=== PATIENT | female | born 1965 | race American Indian/Alaskan Native ===

== ENCOUNTER 2017-05-19 08:36 | Inpatient (IN) | payer MEDICARE ==
[2017-05-19 09:17] LABS: Basophils % (Auto) 0.4 % (0.0-1.8); Eosinophils % (Auto) 1.2 % (0.0-4.3); Hematocrit 42.4 % (30.3-42.9); Hemoglobin 14.2 gm/dl (10.1-14.3); Mean Corpuscular HGB Conc 33 % (30-34); Mean Corpuscular Hemoglobin 30 pg (28-32); Mean Corpuscular Volume 89 fl (79-97); Platelet Count 302 K/mm3 (140-440); Red Blood Count 4.75 M/mm3 (3.65-5.03); Red Cell Distribution Width 14.9 % (13.2-15.2); White Blood Count 6.1 K/mm3 (4.5-11.0)
[2017-05-19 09:32] LABS: Anion Gap 17 mmol/L; Blood Urea Nitrogen 11 mg/dL (7-17); Carbon Dioxide 29 mmol/L (22-30); Chloride 99.1 mmol/L (98-107); Glucose 96 mg/dL (65-100); Potassium 3.9 mmol/L (3.6-5.0); Sodium 141 mmol/L (137-145)
--- NOTE | 2017-05-19 13:09 | Emergency Department Report ---
ED Chest Pain HPI - General Chief Complaint: Chest Pain Stated Complaint: CHEST PAIN Time Seen by Provider: 05/19/17 12:59 Source: patient Mode of arrival: Ambulatory Limitations: No Limitations - History of Present Illness MD Complaint: chest pain -: Gradual, Last night Onset: during rest Pain Location: substernal, left chest Pain Radiation: none Severity scale (0 -10): 7 Quality: heaviness, pressure Improves With: nothing Worsens With: exertion Treatments Prior to Arrival: none - Related Data Allergies Allergy/AdvReac Type Severity Reaction Status Date / Time No Known Allergies Allergy Unverified 05/19/17 08:46 Heart Score - HEART Score History: Moderately suspicious EKG: Non-specific Age: 45-65 Risk factors: > 3 risk factors or hx of atherosclerotic disease Troponin: < normal limit HEART Score: 5 - Critical Actions Critical Actions: 4-6 pts:12-16.6% risk of adverse cardiac event. Should be admitted ED Review of Systems ROS: Stated complaint: CHEST PAIN Other details as noted in HPI Comment: All other systems reviewed and negative Constitutional: denies: chills, fever Cardiovascular: chest pain, dyspnea on exertion, syncope. denies: palpitations , orthopnea, paroxysmal nocturnal dyspnea Gastrointestinal: denies: abdominal pain, nausea, vomiting Genitourinary: denies: frequency Neurological: denies: headache ED Past Medical Hx - Past Medical History Hx Hypertension: Yes Hx Heart Attack/AMI: No Hx Congestive Heart Failure: No Hx Asthma: Yes - Surgical History Past Surgical History?: No - Social History Smoking Status: Never Smoker Substance Use Type: None ED Physical Exam - General Limitations: No Limitations General appearance: alert, in no apparent distress - Head Head exam: Present: atraumatic - Neck Neck exam: Present: normal inspection - Respiratory Respiratory exam: Present: normal lung sounds bilaterally. Absent: wheezes, rales, rhonchi - Cardiovascular Cardiovascular Exam: Present: regular rate, normal heart sounds - GI/Abdominal GI/Abdominal exam: Present: soft. Absent: tenderness, guarding, rebound - Neurological Exam Neurological exam: Present: alert, oriented X3, CN II-XII intact. Absent: motor sensory deficit - Psychiatric Psychiatric exam: Present: normal affect ED Course Vital Signs 05/19/17 05/19/17 08:46 13:17 Temperature 98.7 F 98 F Pulse Rate 69 53 L Respiratory 18 16 Rate Blood Pressure 117/68 Blood Pressure 121/86 [Right] O2 Sat by Pulse 99 99 Oximetry ED Medical Decision Making - Lab Data Result diagrams: 05/19/17 08:57 05/19/17 08:57 - Medical Decision Making DISCUSS WITH DR TALBOT TO ADMIT FOR CHEST PAIN R/O [place]. DR TALBOT ACCEPTED THE PATIENT TO BE ADMITTED FOR TELE OBSERVATION. Critical care attestation.: If time is entered above; I have spent that time in minutes in the direct care of this critically ill patient, excluding procedure time. ED Disposition Clinical Impression: Chest pain Disposition: DC-09 OP ADMIT IP TO THIS HOSP Is pt being admited?: Yes Does the pt Need Aspirin: Yes Condition: Stable Instructions: Chest Pain (ED) Referrals: PRIMARY CARE, [Primary Care Provider] - 3-5 Days
--- NOTE | 2017-05-19 13:23 | XRay Report ---
Single view chest: History: Fever and cough. Findings: Normal cardiomediastinal silhouette. Trachea is midline. No consolidation, pneumothorax or pleural effusion. Impression: No acute cardiopulmonary findings.
[2017-05-19] MEDS ORDERED: BABY ASPIRIN PO ONE (13:40)
[2017-05-19] MEDS ORDERED: NITROSTAT SL ONE (13:40)
[2017-05-19] MEDS ORDERED: NACL 0.9% 1000 ML 1,000 ML ONE (14:06)
--- NOTE | 2017-05-19 16:49 | History and Physical Report ---
History of Present Illness Date of examination: 05/19/17 Date of admission: 05/19/17 13:45 Chief complaint: Chest pain since last night History of present illness: MENTASTA:51 y/o female with pmh of HTN Asthma comes in for L sided chest pain since last night Pain is retro sternal non radiating.No Sob or diaphoresis.No palpitations. - HEART Score History: Moderately suspicious EKG: Non-specific Age: 45-65 Risk factors: > 3 risk factors or hx of atherosclerotic disease Troponin: < normal limit HEART Score: - Past Medical History Hx Hypertension: Yes Hx Heart Attack/AMI: No Hx Congestive Heart Failure: No Hx Asthma: Yes - Surgical History Past Surgical History?: No - Social History Smoking Status: Never Smoker Substance Use Type: None Fam Hx HTN Medications and Allergies Allergies Allergy/AdvReac Type Severity Reaction Status Date / Time No Known Allergies Allergy Unverified 05/19/17 08:46 Review of Systems All systems: negative Constitutional: no weight loss, no weight gain, no fever, no chills Ears, nose, mouth and throat: no hoarseness, no sore throat Breasts: deferred Cardiovascular: chest pain, no orthopnea, no palpitations, no rapid/irregular heart beat, no edema, no syncope, no lightheadedness, no shortness of breath Respiratory: congestion, wheezing, no cough, no cough with sputum, no excessive sputum, no hemoptysis, no shortness of breath, no dyspnea on exertion Gastrointestinal: no abdominal pain, no nausea, no vomiting, no diarrhea, no constipation, no change in bowel habits, no hematemesis, no coffee ground emesis Genitourinary Female: no pelvic pain, no flank pain, no menorrhagia, no dysuria , no urinary frequency, no urgency, no stress incontinence Menstruation: ammenorrhea Musculoskeletal: no neck stiffness, no neck pain, no shooting arm pain, no arm numbness/tingling, no low back pain, no shooting leg pain, no leg numbness/ tingling, no redness of joints Integumentary: no rash, no pruritis, no redness, no sores, no wounds, no jaundice, no boils, no blisters Neurological: no weakness, no parathesias, no numbness, no tingling, no seizures , no syncope Psychiatric: no anxiety, no memory loss, no change in sleep habits, no sleep disturbances, no insomnia, no hypersomnia, no change in appetite, no change in libido Endocrine: no cold intolerance, no heat intolerance, no polyphagia, no excessive thirst, no polydipsia, no polyuria, no nocturia, no excessive sweating , no flushing, no weight change Hematologic/Lymphatic: no easy bruising, no easy bleeding Allergic/Immunologic: wheezing, no urticaria, no allergic rhinitis Exam - Physical Exam Narrative exam: Lying comfortaby - Constitutional Vitals: Temp Pulse Resp BP Pulse Ox 98 F 54 L 16 143/81 96 05/19/17 13:17 05/19/17 15:10 05/19/17 15:10 05/19/17 15:10 05/19/17 15:10 General appearance: Present: no acute distress, well-nourished - EENT Eyes: Present: PERRL ENT: hearing intact, clear oral mucosa - Neck Neck: Present: supple, normal ROM - Respiratory Respiratory effort: normal Respiratory: bilateral: CTA - Cardiovascular Heart rate: 76 Rhythm: regular Heart Sounds: Present: S1 & S2. Absent: rub, click - Extremities Extremities: no ischemia, pulses intact, pulses symmetrical, No edema Peripheral Pulses: within normal limits - Abdominal General gastrointestinal: Present: soft, non-tender, non-distended, normal bowel sounds Female genitourinary: Present: normal - Rectal Rectal Exam: deferred - Integumentary Integumentary: Present: clear, warm, dry - Musculoskeletal Musculoskeletal: gait normal, strength equal bilaterally - Psychiatric Psychiatric: appropriate mood/affect, intact judgment & insight - Neurologic Neurologic: CNII-XII intact, moves all extremities - Allied Health Allied health notes reviewed: nursing, case management Results - Labs CBC & Chem 7: 05/20/17 04:16 05/20/17 04:16 Labs: Laboratory Last Values WBC 6.1 K/mm3 (4.5-11.0) 05/19/17 08:57 RBC 4.75 M/mm3 (3.65-5.03) 05/19/17 08:57 Hgb 14.2 gm/dl (10.1-14.3) 05/19/17 08:57 Hct 42.4 % (30.3-42.9) 05/19/17 08:57 MCV 89 fl (79-97) 05/19/17 08:57 MCH 30 pg (28-32) 05/19/17 08:57 MCHC 33 % (30-34) 05/19/17 08:57 RDW 14.9 % (13.2-15.2) 05/19/17 08:57 Plt Count 302 K/mm3 (140-440) 05/19/17 08:57 Lymph % (Auto) 33.6 % (13.4-35.0) 05/19/17 08:57 [place] % (Auto) 5.2 % (0.0-7.3) 05/19/17 08:57 Eos % (Auto) 1.2 % (0.0-4.3) 05/19/17 08:57 Baso % (Auto) 0.4 % (0.0-1.8) 05/19/17 08:57 Lymph # 2.1 K/mm3 (1.2-5.4) 05/19/17 08:57 [place] # 0.3 K/mm3 (0.0-0.8) 05/19/17 08:57 Eos # 0.1 K/mm3 (0.0-0.4) 05/19/17 08:57 Baso # 0.0 K/mm3 (0.0-0.1) 05/19/17 08:57 Seg Neutrophils % 59.6 % (40.0-70.0) 05/19/17 08:57 Seg Neutrophils # 3.7 K/mm3 (1.8-7.7) 05/19/17 08:57 Sodium 141 mmol/L (137-145) 05/19/17 08:57 Potassium 3.9 mmol/L (3.6-5.0) 05/19/17 08:57 Chloride 99.1 mmol/L (98-107) 05/19/17 08:57 Carbon Dioxide 29 mmol/L (22-30) 05/19/17 08:57 Anion Gap 17 mmol/L 05/19/17 08:57 BUN 11 mg/dL (7-17) 05/19/17 08:57 Creatinine 1.0 mg/dL (0.7-1.2) 05/19/17 08:57 Estimated GFR > 60 ml/min 05/19/17 08:57 BUN/Creatinine Ratio 11.00 % 05/19/17 08:57 Glucose 96 mg/dL (65-100) 05/19/17 08:57 Calcium 9.0 mg/dL (8.4-10.2) 05/19/17 08:57 Troponin T < 0.010 ng/mL (0.00-0.029) 05/19/17 15:09 NT-Pro-B Natriuret Pep 56.89 pg/mL (0-900) 05/19/17 11:52 Lipase 47 units/L (13-60) 05/19/17 11:52 Short CBC 05/19/17 05/20/17 Range/Units 08:57 04:16 WBC 6.1 6.2 (4.5-11.0) K/mm3 Hgb 14.2 13.6 (10.1-14.3) gm/dl Hct 42.4 40.2 (30.3-42.9) % Plt Count 302 264 (140-440) K/mm3 BMP 05/19/17 05/20/17 08:57 04:16 Sodium 141 143 Potassium 3.9 3.6 Chloride 99.1 99.7 Carbon Dioxide 29 31 H BUN 11 15 Creatinine 1.0 1.0 Glucose 96 99 Calcium 9.0 8.6 Cardiac Enzymes 05/19/17 05/19/17 05/19/17 Range/Units 08:57 11:52 15:09 Total Creatine Kinase (30-135) units/L CK-MB (CK-2) (0.0-4.0) ng/mL Troponin T < 0.010 < 0.010 < 0.010 (0.00-0.029) ng/mL 05/19/17 05/20/17 05/20/17 Range/Units 22:29 04:16 04:16 Total Creatine Kinase 106 120 (30-135) units/L CK-MB (CK-2) 1.4 1.5 (0.0-4.0) ng/mL Troponin T < 0.010 (0.00-0.029) ng/mL Liver Function 05/20/17 Range/Units 04:16 Total Bilirubin 0.20 (0.1-1.2) mg/dL AST 12 (5-40) units/L ALT 13 (7-56) units/L Alkaline Phosphatase 90 (35-129) units/L Albumin 3.7 L (3.9-5) g/dL - Imaging and Cardiology EKG: report reviewed Chest x-ray: report reviewed (NAF) Assessment and Plan Advance Directives: Yes (Full code) VTE prophylaxis?: Chemical Plan of care discussed with patient/family: Yes - Patient Problems (1) Acute coronary syndrome Current Visit: Yes Status: Acute Plan to address problem: Serial cardiac enzymes.Lexiscan scheduled for AM of 05/20/17. Differential diagnosis of Costochondritis and reflux esophagitis considered.Costochondritis ruled out.No Chest wall tenderness. (2) Asthma Current Visit: Yes Status: Acute Qualifiers: Asthma severity: A Asthma complication type: A (3) Asthma Current Visit: Yes Status: Inactive Qualifiers: Asthma severity: A Asthma complication type: uncomplicated Plan to address problem: Albuterol MDI prn 2 puffes qid and if necessary Neb treatments. (4) HTN (hypertension) Current Visit: Yes Status: Chronic Qualifiers: Hypertension type: essential hypertension Qualified Code(s): I10 - Essential (primary) hypertension Plan to address problem: Borderline.Will add coreg or Losartan if BP readings are high (5) DVT prophylaxis Current Visit: Yes Status: Acute Plan to address problem: On Lovenox 40 mg sq qd
[2017-05-19] MEDS ORDERED: MILK OF MAGNESIA PO PRN (22:17)
[2017-05-19] MEDS ORDERED: ZOFRAN IV PRN (22:17)
[2017-05-19] MEDS ORDERED: DILAUDID IV PRN (22:17)
[2017-05-19] MEDS ORDERED: DULCOLAX PR PRN (22:17)
[2017-05-19] MEDS ORDERED: TYLENOL PO PRN (22:17)
[2017-05-19] MEDS ORDERED: AMBIEN PO PRN (22:17)
--- NOTE | 2017-05-19 22:17 | History and Physical Report ---
History of Present Illness Date of examination: 05/19/17 Date of admission: 05/19/17 13:45 Medications and Allergies Allergies Allergy/AdvReac Type Severity Reaction Status Date / Time No Known Allergies Allergy Unverified 05/19/17 08:46 Exam - Constitutional Vitals: Temp Pulse Resp BP Pulse Ox 98 F 61 16 135/93 100 05/19/17 18:18 05/19/17 18:18 05/19/17 19:55 05/19/17 18:18 05/19/17 18:18 Results - Labs CBC & Chem 7: 05/19/17 08:57 05/19/17 08:57 Labs: Laboratory Last Values WBC 6.1 K/mm3 (4.5-11.0) 05/19/17 08:57 RBC 4.75 M/mm3 (3.65-5.03) 05/19/17 08:57 Hgb 14.2 gm/dl (10.1-14.3) 05/19/17 08:57 Hct 42.4 % (30.3-42.9) 05/19/17 08:57 MCV 89 fl (79-97) 05/19/17 08:57 MCH 30 pg (28-32) 05/19/17 08:57 MCHC 33 % (30-34) 05/19/17 08:57 RDW 14.9 % (13.2-15.2) 05/19/17 08:57 Plt Count 302 K/mm3 (140-440) 05/19/17 08:57 Lymph % (Auto) 33.6 % (13.4-35.0) 05/19/17 08:57 [place] % (Auto) 5.2 % (0.0-7.3) 05/19/17 08:57 Eos % (Auto) 1.2 % (0.0-4.3) 05/19/17 08:57 Baso % (Auto) 0.4 % (0.0-1.8) 05/19/17 08:57 Lymph # 2.1 K/mm3 (1.2-5.4) 05/19/17 08:57 [place] # 0.3 K/mm3 (0.0-0.8) 05/19/17 08:57 Eos # 0.1 K/mm3 (0.0-0.4) 05/19/17 08:57 Baso # 0.0 K/mm3 (0.0-0.1) 05/19/17 08:57 Seg Neutrophils % 59.6 % (40.0-70.0) 05/19/17 08:57 Seg Neutrophils # 3.7 K/mm3 (1.8-7.7) 05/19/17 08:57 Sodium 141 mmol/L (137-145) 05/19/17 08:57 Potassium 3.9 mmol/L (3.6-5.0) 05/19/17 08:57 Chloride 99.1 mmol/L (98-107) 05/19/17 08:57 Carbon Dioxide 29 mmol/L (22-30) 05/19/17 08:57 Anion Gap 17 mmol/L 05/19/17 08:57 BUN 11 mg/dL (7-17) 05/19/17 08:57 Creatinine 1.0 mg/dL (0.7-1.2) 05/19/17 08:57 Estimated GFR > 60 ml/min 05/19/17 08:57 BUN/Creatinine Ratio 11.00 % 05/19/17 08:57 Glucose 96 mg/dL (65-100) 05/19/17 08:57 Calcium 9.0 mg/dL (8.4-10.2) 05/19/17 08:57 Troponin T < 0.010 ng/mL (0.00-0.029) 05/19/17 15:09 NT-Pro-B Natriuret Pep 56.89 pg/mL (0-900) 05/19/17 11:52 Lipase 47 units/L (13-60) 05/19/17 11:52
[2017-05-19] MEDS ORDERED: DUONEB *Not for PRN Use IH SCH (22:30)
[2017-05-19 23:29] LABS: Creatine Kinase MB 1.4 ng/mL (0.0-4.0)
[2017-05-20] MEDS: PERCOCET 5/325 PO PRN ×2 (00:29→09:53)
--- NOTE | 2017-05-20 01:37 | Admit Criteria Form ---
Admission Criteria Documentation: CARDIOLOGY GRG Clinical Indications for Admission to Inpatient Care ( Place 'X' for any and all applicable criteria): Hospital admission is needed for appropriate care of the patient because of ANY ONE of the following (1): [ ] I. Hemodynamic instability as indicated by ALL of the following (1)(2)(3) (4)(5) [ ]a) Vital signs or other findings not as expected for chronic patient condition or baseline [ ]b) Instability indicated by ANY ONE of the following: [ ]i) Hypotension [ ]ii) Symptomatic Tachycardia unresponsive to treatment ( e.g., analgesia, fluids, sedation as indicated) [ ]iii) Inadequate perfusion indicated by ANY ONE of the following: [ ] 1) Lactic acidosis (> 2 mmol/L) [ ] 2) New abnormal capillary refill (> 3 seconds) [ ] 3) Reduced urine output [ ] 4) New altered mental status [ ]iv) Orthostatic vital sign changes unresponsive to treatment (e.g., fluids) [ ]v) IV inotropic or vasopressor medication required to maintain adequate blood pressure or perfusion [ ] II. Severe heart failure as indicated by ANY ONE of the following(17)(18) [ ]a) Respiratory distress [ ]b) Hypotension [ ]c) Anasarca (refractory to outpatient therapy) [ ]d) Cardiac arrhythmias of immediate concern [ ]e) Myocardial ischemia [ ] III. Cardiac arrhythmias or findings of immediate concern indicated by ANY ONE of the following (19)(20): [ ] a) Heart rhythms that are inherently dangerous or unstable indicated by ANY ONE of the following (21)(22)(23): [ ] i) Resuscitated ventricular fibrillation or cardiac arrest [ ] ii) Ventricular escape rhythm [ ] iii) Sustained ventricular tachycardia (30 seconds or more of ventricular rhythm at greater than 100 beats per minute) [ ] iv) Nonsustained ventricular tachycardia and ANY ONE of the following: [ ] 1) Suspected cardiac ischemia as cause or consequence of ventricular tachycardia [ ] 2) In setting of acute myocarditis [ ] b) Unstable cardiac conduction defects indicated by ANY ONE of the following(23)(24)(25) [ ] i) Type II second-degree atrioventricular block [ ]ii) Third-degree atrioventricular block [ ]iii) New-onset left bundle branch block with suspected myocardial ischemia [ ]c) Any heart rhythm and ANY ONE of the following (21)(22)(26)(27) (28) [ ] i) Continuous long-term ECG monitoring needed (e.g., initiation of drug requiring monitoring for more than 24 hours) [ ] ii) Patient has automatic implanted cardioverter defibrillator that is repeatedly firing, malfunctioning, or in need of immediate adjustment of settings beyond the scope of ambulatory or observation care [ ]d) Heart rhythms of concern due to ANY ONE of the following: [ ] i) Hypotension [ ] ii) Respiratory distress [ ] iii) Association with other significant symptoms (e.g., bradycardia with syncope or ongoing dizziness, supraventricular tachycardia with chest pain (14)(15)(17) [ ] IV. Monitoring for cardiac contusion beyond the scope of observation care needed [A](30)(31)(32) [ ] V. Surgical or device complication (e.g., valve replacement complication , pacemaker dysfunction) (35)(41)(44)(45)(46) [ ] . Inpatient palliative care needed. [B](49) Also use Inpatient Palliative Care Criteria [ ] VII. Nonbacterial thrombotic (marantic) endocarditis (36)(43)(47)(48) [X ] VIII. Cardiology condition, symptom, or finding for which emergency and observation care has failed or are not considered appropriate. [ ] IX. Acute valvular disease requiring inpatient as indicated by ANY ONE of the following (41) [ ]a) Acute valvular regurgitation (42) [ ]b) Noninfectious valvulitis (43) [ ]c) Obstructive valve thrombosis [ ]d) Paravalvular leak [ ]e) Other significant valvular disorder remaining after emergency or observation level of care (as appropriate) [ ]X. Pericardial disease requiring inpatient treatment as indicated by ANY ONE of the following (33)(34)(35)(36)(37) [ ]a) Suspected tamponade (38)(39)(40) [ ]b) Hemopericardium [ ]c) Other significant pericardial disorder remaining after emergency or observation level of care (as appropriate) [ ] XI. Cardiac ischemia beyond scope of emergency and observation care. [ ] XII. Hypertension requiring inpatient treatment as indicated by ANY ONE of the following (6)(7)(8) [ ]a) SBP greater than 220 mm Hg or DBP greater than 120 mmHg despite treatment [ ]b) SBP greater than 140 mm Hg or DBP greater than 100 mm Hg with evidence of acute end organ damage as indicated by ANY ONE of the following [ ] i) Altered mental status [ ] ii) Acute renal failure as indicated by new onset of ANY ONE of the following (9)(10)(11)(12)(13) [ ]1) 3-fold rise in serum creatinine from baseline [ ]2) Serum creatinine greater than 4 mg/dL ( 354 micromoles/L) with acute rise greater than 0.5 mg/dL (44.2 micromoles/L) [ ]3) Reduction of more than 75% in estimated glomerular filtration rate from baseline [ ]4) Estimated glomerular filtration rate less than 35 mL/min/1.73m2 (0.59 mL/sec/1.73m2) in child up to 18 years of age [ ]5) Cessation of urine output indicated by ALL of the following [ ]A. Adequate volume status [ ]B. Inadequate urine output as indicated by ANY ONE of the following [ ]a. Urine output less than 0.3 mL/kg/hr for 24 hours [ ]b. Anuria (urine output less than 0.1 mL/kg/hr) for 12 hours [ ] iii) Aortic dissection [ ] iv) Myocardial Ischemia [ ] v) Left ventricular heart failure [ ]vi) Retinal Hemorrhage [ ]vii) Other significant finding [ ]c) Hypertension in child requiring inpatient treatment as indicated by ALL of the following(14)(15)(16) [ ] i) Outpatient treatment not effective, not available, or not appropriate [ ]ii) SBP or DBP greater than 95th percentile for age [ ]iii) Evidence of acute end organ damage as indicated by ANY ONE of the following [ ]1) Altered mental status [ ]2) Acute renal failure as indicated by new onset of ANY ONE of the following(9)(10)(11)(12)(13) [ ]A. 3-fold rise in serum creatinine from baseline [ ]B. Serum creatinine greater than 4 mg/dL (354 micromoles/L) with acute rise greater than 0.5 mg/dL (44.2 micromoles/L) [ ]C. Reduction of more than 75% in estimated glomerular filtration rate from baseline [ ]D. Estimated glomerular filtration rate less than 35 mL/min/1.73m2 (0.59 mL/sec/1.73m2) in child up to 18 years of age [ ]E. Cessation of urine output indicated by ALL of the following [ ]a. Adequate volume status [ ]b. Inadequate urine output as indicated by ANY ONE of the following [ ]i) Urine output less than 0.3 mL/kg/hr for 24 hours [ ]ii) Anuria ( urine output less than 0.1 mL/kg/hr) for 12 hours [ ]3) Severe headache [ ]4) Visual disturbance [ ]5) Retinal hemorrhage [ ]6) Other significant finding [ ]XIII. Complications of transplanted heart indicated by ANY ONE of the following(61): [ ]a) Acute graft rejection requiring inpatient management (eg, intravenous immunosuppression)(62)(63) [ ]b) Acute graft heart failure indicated by ANY ONE of the following(64): [ ]i) Hemodynamic instability [ ]ii) Cardiac arrhythmias of immediate concern [ ]iii) Pulmonary edema that is very severe (eg, mechanical ventilation needed, imminent or likely, need for 100% oxygen to keep oxygen saturation above 90%) [ ]iv) Pulmonary edema that is persistent as indicated by ALL of the following: [ ]1) New need for oxygen therapy to keep oxygen saturation above 90% (or increased FiO2 need from baseline) [ ]2) Has not improved sufficiently with emergency department or observation care IV diuretics or other heart failure treatments[E] [ ]v) Altered mental status that is severe or persistent [ ]vi) Increased creatinine (new on laboratory test) with reduction of more than 50% in estimated glomerular filtration rate from baseline [ ]vii) Progressively (ongoing) rising creatinine (known from past laboratory test) with reduction of more than 25% in estimated glomerular filtration rate from baseline [ ]viii) Acute renal failure [ ]ix) Acute peripheral ischemia (eg, examination shows pulseless, cool, mottled, or cyanotic extremity) [ ]x) Pulmonary artery catheter monitoring needed [ ]xi) Other sign or symptom of heart failure requiring inpatient treatment (ie, too severe or not responsive to outpatient and observation care treatment) [ ]c) Infection requiring inpatient management (eg, Hemodynamic instability, need for intravenous antimicrobial treatment)(66)(67)(68)(69)(70) [ ]d) Cardiac allograft vasculopathy requiring inpatient management ( eg evidence of cardiac ischemia)(71) [ ]e) Other complication of transplanted heart (eg, stroke, severe pulmonary hypertension, severe valvular dysfunction) requiring inpatient management(72) The original [facility] [employer] content created by [employer] has been revised. The portions of the content which have been revised are identified through the use of italic text or in bold, and [facility] has neither reviewed nor approved the modified material. All other unmodified content is copyright [facility] [email or web address]. Please see references footnoted in the original [facility] [email or web address] edition 2016 Admission Criteria Met: Yes
[2017-05-20 05:05] LABS: Basophils % (Auto) 0.5 % (0.0-1.8); Eosinophils % (Auto) 2.2 % (0.0-4.3); Hematocrit 40.2 % (30.3-42.9); Hemoglobin 13.6 gm/dl (10.1-14.3); Mean Corpuscular HGB Conc 34 % (30-34); Mean Corpuscular Hemoglobin 30 pg (28-32); Mean Corpuscular Volume 88 fl (79-97); Platelet Count 264 K/mm3 (140-440); Red Blood Count 4.56 M/mm3 (3.65-5.03); Red Cell Distribution Width 15.5 % (13.2-15.2); White Blood Count 6.2 K/mm3 (4.5-11.0)
[2017-05-20 05:10] LABS: Alanine Aminotransferase 13 units/L (7-56); Albumin 3.7 g/dL (3.9-5); Albumin/Globulin Ratio 1.1 %; Alkaline Phosphatase 90 units/L (35-129); Anion Gap 16 mmol/L; Blood Urea Nitrogen 15 mg/dL (7-17); Calcium 8.6 mg/dL (8.4-10.2); Carbon Dioxide 31 mmol/L (22-30); Chloride 99.7 mmol/L (98-107); Creatine Kinase MB 1.5 ng/mL (0.0-4.0); Glucose 99 mg/dL (65-100); Potassium 3.6 mmol/L (3.6-5.0); Sodium 143 mmol/L (137-145)
[2017-05-20 07:25] VITALS: BP 159/93
[2017-05-20] MEDS ORDERED: LEXISCAN IV ONE (08:17)
[2017-05-20] MEDS: DUONEB *Not for PRN Use IH SCH ×2 (09:07→15:11)
[2017-05-20] MEDS ORDERED: PERCOCET 5/325 ONE (09:49)
[2017-05-20] MEDS ORDERED: PEPCID PO SCH (10:00)
[2017-05-20] MEDS ORDERED: COZAAR PO SCH (10:00)
--- NOTE | 2017-05-20 10:22 | Consultation ---
History of Present Illness Consult date: 05/20/17 Consult reason: chest pain History of present illness: 51 YO woman with h/o htn and asthma who presented to ED with pressure type of left sided chest pain. She describes the pain as pressure type sensation without radiation, diaphoresis, nausea or dyspnea. Lasted for several minutes and there was no association with exertion. MO has been ruled out and patient underwent MPI this morning. ECG reveals NSR with nonspecific T wave changes, prolonged QTc. Past History Past Medical History: hypertension, other (asthma) Social history: denies: smoking Family history: no significant family history Medications and Allergies Allergies Allergy/AdvReac Type Severity Reaction Status Date / Time No Known Allergies Allergy Unverified 05/19/17 08:46 Active Meds: Active Medications Acetaminophen (Tylenol) 650 mg PO Q4H PRN PRN Reason: Pain MILD(1-3)/Fever >100.5/ALCALA Albuterol/Ipratropium (Duoneb *Not For Prn Use*) 1 ampul IH TIDRT GUIDO Last Admin: 05/20/17 09:07 Dose: Not Given Bisacodyl (Dulcolax) 10 mg NE QDAY PRN PRN Reason: Constipation unrelieved by [facility] Famotidine (Pepcid) 20 mg PO BID GUIDO Hydromorphone HCl (Dilaudid) 0.5 mg IV Q3H PRN PRN Reason: Pain , Severe (7-10) Losartan Potassium (Cozaar) 50 mg PO QDAY GUIDO Magnesium Hydroxide (Milk Of Magnesia) 30 ml PO Q4H PRN PRN Reason: Constipation Ondansetron HCl (Zofran) 4 mg IV Q8H PRN PRN Reason: N/V unrelieved by Reglan Oxycodone/Acetaminophen (Percocet 5/325) 1 tab PO Q6H PRN PRN Reason: Pain, Moderate (4-6) Last Admin: 05/20/17 09:53 Dose: 1 tab Simvastatin (Zocor) 20 mg PO QHS GUIDO Zolpidem Tartrate (Ambien) 5 mg PO QHS PRN PRN Reason: Insomnia Last Admin: 05/20/17 00:29 Dose: 5 mg Review of Systems All systems: negative (per hpi) Physical Examination Vital Signs Temp Pulse Resp BP Pulse Ox 98.7 F 69 18 117/68 99 05/19/17 08:46 05/19/17 08:46 05/19/17 08:46 05/19/17 08:46 05/19/17 08:46 Last Vital Signs Temp 98.5 F 05/20/17 07:24 Pulse 77 05/20/17 07:24 Resp 22 05/20/17 09:53 BP 159/93 05/20/17 07:24 Pulse Ox 100 05/20/17 07:24 General appearance: no acute distress HEENT: Positive: PERRL, EOMI Neck: Negative: JVD/HJR Cardiac: Positive: Reg Rate and Rhythm. Negative: Audible Murmur Lungs: Positive: clear to auscultation Neuro: Positive: Grossly Intact Abdomen: Positive: Soft, Active Bowel Sounds Extremities: Absent: edema Results 05/20/17 04:16 05/20/17 04:16 Cardiac Enzymes 05/19/17 05/20/17 05/20/17 Range/Units 22:29 04:16 04:16 AST 12 (5-40) units/L CK-MB (CK-2) 1.4 1.5 (0.0-4.0) ng/mL CBC 05/20/17 Range/Units 04:16 WBC 6.2 (4.5-11.0) K/mm3 RBC 4.56 (3.65-5.03) M/mm3 Hgb 13.6 (10.1-14.3) gm/dl Hct 40.2 (30.3-42.9) % Plt Count 264 (140-440) K/mm3 Lymph # 1.6 (1.2-5.4) K/mm3 [place] # 0.5 (0.0-0.8) K/mm3 Eos # 0.1 (0.0-0.4) K/mm3 Baso # 0.0 (0.0-0.1) K/mm3 Comprehensive Metabolic Panel 05/20/17 Range/Units 04:16 Sodium 143 (137-145) mmol/L Potassium 3.6 (3.6-5.0) mmol/L Chloride 99.7 (98-107) mmol/L Carbon Dioxide 31 H (22-30) mmol/L BUN 15 (7-17) mg/dL Creatinine 1.0 (0.7-1.2) mg/dL Glucose 99 (65-100) mg/dL Calcium 8.6 (8.4-10.2) mg/dL AST 12 (5-40) units/L ALT 13 (7-56) units/L Alkaline Phosphatase 90 (35-129) units/L Total Protein 7.0 (6.3-8.2) g/dL Albumin 3.7 L (3.9-5) g/dL Assessment and Plan Chest pain with typical and atypical features. MO has been ruled out. Htn Asthma Recommend: MPI today - results to follow. Titrate BP medications to control htn.
--- NOTE | 2017-05-20 12:07 | Event Note ---
Date: 05/20/17 Preliminarily, MPI reveals no significant ischemia and normal LVEF.
[2017-05-20 12:46] LABS: Creatine Kinase MB 1.4 ng/mL (0.0-4.0)
--- NOTE | 2017-05-20 13:06 | Progress Note ---
Assessment and Plan - Patient Problems (1) Acute coronary syndrome Current Visit: Yes Status: Acute Plan to address problem: Serial cardiac enzymes.Lexiscan scheduled for AM of 05/20/17. Differential diagnosis of Costochondritis and reflux esophagitis considered.Costochondritis ruled out.No Chest wall tenderness. (2) Asthma Current Visit: Yes Status: Inactive Qualifiers: Asthma severity: A Asthma complication type: uncomplicated Plan to address problem: Albuterol MDI prn 2 puffes qid and if necessary Neb treatments. (3) HTN (hypertension) Current Visit: Yes Status: Chronic Qualifiers: Hypertension type: essential hypertension Qualified Code(s): I10 - Essential (primary) hypertension Plan to address problem: Borderline.Will add coreg or Losartan if BP readings are high (4) DVT prophylaxis Current Visit: Yes Status: Acute Plan to address problem: On Lovenox 40 mg sq qd Subjective Date of service: 05/20/17 Objective - Exam Narrative Exam: Lying comfortaby - Constitutional Vitals: Vital Signs - 12hr 05/20/17 05/20/17 05/20/17 01:20 01:28 06:12 Temperature 0 F L 97.8 F Pulse Rate Pulse Rate [ 59 L 72 Left Radial] Respiratory 20 20 Rate Blood Pressure Blood Pressure 116/67 145/81 [Left Radial Artery] O2 Sat by Pulse 96 100 98 Oximetry 05/20/17 05/20/17 05/20/17 07:24 08:53 09:35 Temperature 98.5 F Pulse Rate 58 L 93 H Pulse Rate [ 77 Left Radial] Respiratory 20 Rate Blood Pressure 138/71 135/91 Blood Pressure 159/93 [Left Radial Artery] O2 Sat by Pulse 100 Oximetry 05/20/17 05/20/17 05/20/17 09:36 09:37 09:38 Temperature Pulse Rate 91 H 82 73 Pulse Rate [ Left Radial] Respiratory Rate Blood Pressure 137/60 151/92 131/84 Blood Pressure [Left Radial Artery] O2 Sat by Pulse Oximetry 05/20/17 05/20/17 05/20/17 09:39 09:40 09:53 Temperature Pulse Rate 77 71 Pulse Rate [ Left Radial] Respiratory 22 Rate Blood Pressure 148/93 148/93 Blood Pressure [Left Radial Artery] O2 Sat by Pulse Oximetry 05/20/17 05/20/17 10:00 11:07 Temperature Pulse Rate 60 Pulse Rate [ Left Radial] Respiratory Rate Blood Pressure 159/93 Blood Pressure [Left Radial Artery] O2 Sat by Pulse Oximetry General appearance: Present: no acute distress, well-nourished - EENT Eyes: PERRL, EOM intact ENT: hearing intact, clear oral mucosa Ears: bilateral: normal - Neck Neck: supple, normal ROM - Respiratory Respiratory effort: normal Respiratory: bilateral: CTA - Breasts Breasts: normal - Cardiovascular Rhythm: regular Heart Sounds: Present: S1 & S2. Absent: gallop, rub Extremities: pulses intact, No edema, normal color, Full ROM - Gastrointestinal General gastrointestinal: Present: soft, non-tender, non-distended, normal bowel sounds - Genitourinary Female genitourinary: normal - Integumentary Integumentary: clear, warm, dry - Musculoskeletal Musculoskeletal: 1, strength equal bilaterally - Neurologic Neurologic: moves all extremities - Psychiatric Psychiatric: memory intact, appropriate mood/affect, intact judgment & insight - Labs CBC & Chem 7: 05/20/17 04:16 05/20/17 04:16 Labs: Abnormal lab results 05/20/17 05/20/17 Range/Units 04:16 04:16 RDW 15.5 H (13.2-15.2) % [place] % (Auto) 7.5 H (0.0-7.3) % Carbon Dioxide 31 H (22-30) mmol/L Albumin 3.7 L (3.9-5) g/dL
--- NOTE | 2017-05-20 13:34 | Discharge Summary ---
Providers - Providers Date of Admission: 05/19/17 13:45 Date of discharge: 05/20/17 Attending physician: DEAN TALBOT 05/19/17 Consult to Cardiac Rehabilitation [CONS] Routine Reason For Exam: Phase 1 05/19/17 22:20 Consult to Cardiology [CONS] Routine Consulting Provider: ALEXI MCHUGH Reason For Exam: ACS Primary care physician: CESAR DENT MD Hospitalization Condition: Stable Procedures: Lexiscan Negative Disposition: DC-01 TO HOME OR SELFCARE - Discharge Diagnoses (1) Acute coronary syndrome Status: Acute (2) Asthma Status: Inactive Qualifiers: Asthma severity: A Asthma complication type: uncomplicated (3) HTN (hypertension) Status: Chronic Qualifiers: Hypertension type: essential hypertension Qualified Code(s): I10 - Essential (primary) hypertension (4) DVT prophylaxis Status: Acute Exam - Constitutional Vitals: Temp Pulse Resp BP Pulse Ox 98.5 F 60 22 159/93 100 05/20/17 07:24 05/20/17 10:00 05/20/17 09:53 05/20/17 11:07 05/20/17 07:24 Plan Follow up with: CESAR DENT MD [Primary Care Provider] - 3-5 Days
[2017-05-20] MEDS ORDERED: ZOCOR PO SCH (22:00)
== END 2017-05-20 16:47 | disposition home or self-care (01) | DRG 311 ==
LOC: ED 08:36 → 4A 13:45
PROVIDERS: ADMIT Internal Medicine; ATTEND Internal Medicine
DX: I24.9 Acute ischemic heart disease, unspecified (principal); I10 Essential (primary) hypertension; J45.909 Unspecified asthma, uncomplicated; Z82.49 Family history of ischemic heart disease and other diseases of the circulatory system
CPT/HCPCS: 36415; 71010; 78452; 80048; 80053; 82550; 82553; 83690; 83880; 84484; 85025; 93005; 93010; 93017; A9502; J2785; J7030